=== PATIENT | male | born 1990 | race Caucasian/White ===

== ENCOUNTER 2016-10-03 19:10 | Emergency (ER) | payer MEDICAID, OTHER ==
[~2016-10-03] VITALS: Ht 172.7 cm; Wt 73.0 kg
[2016-10-03 19:16] VITALS: Ht 172.7 cm; Wt 73.0 kg
[2016-10-03] MEDS ORDERED: FIORICET PO (19:57)
--- NOTE | 2016-10-03 20:01 | ERD ---
ER Documentation Chief Complaint Date/Time DATE: 10/03/16 TIME: 19:58 Chief Complaint headache x 1 hour HPI 26-year-old male who presents the emergency room with a headache. The patient has no significant past medical history. For the past 7 days the patient has been having gradual onset unilateral left-sided headaches that are dull and throbbing lasted approximately 5 minutes and completely alleviated for at least 6 hours with Tylenol. The patient smokes cigarettes and uses marijuana 3 times a week. No morning headaches, no sudden onset headache, no vision changes, no rash or fever, no neck stiffness. Patient has no pain currently. ROS All systems reviewed and are negative except as per history of present illness. Medications Home Meds Active Scripts Acetamin/Butalbital/Caffeine* (Fioricet*) [id number] Tab, 1 TAB PO Q6H Y for PAIN, #30 TAB Prov:MEGAN RAI MD 10/03/16 Allergies Allergies: Coded Allergies: No Known Drug Allergies (Verified Allergy, Unknown, 10/03/16) PMhx/Soc Medical and Surgical Hx: pt denies Medical Hx, pt denies Surgical Hx History of Surgery: No Anesthesia Reaction: No Hx Neurological Disorder: No Hx Respiratory Disorders: No Hx Cardiac Disorders: No Hx Psychiatric Problems: No Hx Miscellaneous Medical Probl: No Hx Alcohol Use: Yes Hx Substance Use: No Hx Tobacco Use: Yes (THC) Smoking Status: Never smoker FmHx Family History: No diabetes Physical Exam Vitals Vital Signs Date Time Temp Pulse Resp B/P Pulse Ox O2 Delivery O2 Flow Rate FiO2 10/03/16 19:16 99.1 107 20 139/86 98 Physical Exam General: Well developed, well nourished, no acute distress Head: Normocephalic, atraumatic. Eyes: Pupils equally reactive, EOM intact ENT: Moist mucous membranes Neck: Supple, no lymphadenopathy Respiratory: Lungs clear bilaterally, no distress Cardiovascular: RRR, no murmurs, rubs, or gallops Abdominal: Soft, non-tender, non-distended, no peritoneal signs : Deferred MSK: No edema, no unilateral swelling, 5/5 strength Neurologic: Alert and oriented, moving all extremities, normal speech, no focal weakness, no cerebellar signs, no meningismus Skin: No rash Psych: Normal mood Procedures/MDM The patient's headache is unlikely related to serious etiology. The patient does not exhibit any clinical signs or symptoms, and has no risk factors to suggest headache etiology such as subarachnoid hemorrhage, acute vertebral or carotid dissection, intracranial mass, epidural, subdural hematoma, dural venous sinus thrombosis, giant cell arteritis, or pseudotumor cerebri. The patient is asymptomatic and otherwise well-appearing. Consider possible tension headaches versus headaches related to polysubstance abuse versus tension headache. No signs or symptoms concerning for meningitis. No evidence of increased intracranial pressure. I discussed the risks, benefits, alternatives of CT imaging. At this time given no trauma, nonfocal neurologic examination I do not believe that CT imaging is necessary for this nontraumatic headache. The patient is otherwise well-appearing. Outpatient neurology referral would be reasonable. I directed the patient to the [facility]. He was advised that he may require outpatient MRI imaging if symptoms persist. A trial of Fioricet would be reasonable. Drug cessation discussed. We discussed follow up with the patient's primary care doctor within 24 to 48 hours as needed. We also discussed return to the emergency room for worsening symptoms or worsening condition. Outpatient referral: Primary care Discharge Medications: Fioricet Departure Diagnosis: Primary Impression: Headache Headache type: unspecified Headache chronicity pattern: acute headache Intractability: not intractable Qualified Code: R51 - Acute nonintractable headache, unspecified headache type Condition: Stable Patient Instructions: Self-Care for Headaches Referrals: [facility] Usted se santillan hecho un examen mdico de control que le indica que no est en [place] condicin que requiera tratamiento urgente en el Departamento de Emergencia. Un estudio ms profundo y el tratamiento de ralph condicin pueden esperar sin ningn riesgo hasta que usted sea atendida/o en el consultorio de ralph mdico o [place] cl tami. Es responsabilidad suya arreglar [place] radha para el seguimiento del gerardo. MANEJO DE CONDICIONES NO URGENTES EN EL FUTURO 1) Si usted tiene un mdico de atencin primaria: Usted debera llamar a ralph mdico de atencin primaria antes de venir al departamento de emergencia. Despus de las horas de consultorio, ralph doctor o ralph asociado/a est disponible por telfono. El mdico o enfermero de jose en el servicio telefnico puede asesorarle por eva medio para atender el problema, o gerardo contrario se puede programar [place] radha. 2) Si usted no tiene un mdico de atencin primaria: Llame al mdico o clnica de referencia que aparece abajo melvin las horas de consultorio para hacer [place] radha para que le vean. CLINICAS: [facility] [phone] [facility] [phone] [address] [facility] [phone] [address] [facility]. [place] [id number] [phone] [facility] [place] [id number] [phone] [facility]. [phone] [address] [facility]. [facility] () Usted se santillan hecho un examen mdico de control que le indica que no est en [place] condicin que requiera tratamiento urgente en el Departamento de Emergencia. Un estudio ms profundo y el tratamiento de ralph condicin pueden esperar sin ningn riesgo hasta que usted sea atendida/o en el consultorio de ralph mdico o [place] cl tami. Es responsabilidad suya arreglar [place] radha para el seguimiento del gerardo. MANEJO DE CONDICIONES NO URGENTES EN EL FUTURO 1) Si usted tiene un mdico de atencin primaria: Usted debera llamar a ralph mdico de atencin primaria antes de venir al departamento de emergencia. Despus de las horas de consultorio, ralph doctor o ralph asociado/a est disponible por telfono. El mdico o enfermero de jose en el servicio telefnico puede asesorarle por eva medio para atender el problema, o gerardo contrario se puede programar [place] radha. 2) Si usted no tiene un mdico de atencin primaria: Llame al mdico o condado institucions de referencia que aparece abajo melvin las horas de consultorio para hacer [place] radha para que le vean. SI USTED NO PUEDE PAGAR PARA GABRIELA UN MEDICO puede ir a: [facility] [address] [place] [address] [facility] [address] [place] [address] [facility] [address] [place] [address] [facility] [facility] [address] [place], [place] [id number] Additional Instructions: Llame al doctor nombrado abajo (Referral Sources) MAANA y dianna [place] RADHA PARA DENTRO DE [place] SEMANA. Dgale a la secretaria que nosotros le instruimos hacer esta radha.Avise o llame si ralph condicin se empeora antes de la radha. You may need to see a neurologist and have an MRI of your head if symptoms continue. MEGAN RAI MD Oct 03, 2016 20:00
[2016-10-03 20:04] VITALS: BP 135/88; PULSE 110; RESP 16; TEMP 98.6
== END 2016-10-03 20:15 | disposition home or self-care (01) ==
LOC: FTE 19:10
DX: R51 Headache (principal); Z87.891 Personal history of nicotine dependence
CPT/HCPCS: 99283